=== PATIENT | female | born 1990 ===

== ENCOUNTER 2017-08-31 11:40 | Inpatient (IN) | payer MEDICAID ==
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
[2017-08-31 12:41] LABS: ALCOHOL SERUM < 10 mg/dl (0-10)
[2017-08-31 12:45] LABS: RBC URINE 1 /hpf (0-3); URINE BACTERIA RARE (<OCC); URINE BILIRUBIN NEGATIVE (NEGATIVE); URINE BLOOD MODERATE (NEGATIVE); URINE COLOR YELLOW (YELLOW); URINE GLUCOSE (UA) NEG (Normal); URINE KETONE NEGATIVE (NEGATIVE); URINE LEUKOCYTE ESTERASE TRACE Leu/uL (Negative); URINE PROTEIN NEGATIVE (NEGATIVE); URINE UROBILINOGEN 0.2-1.0 mg/dL (0.2-1.0); WBC URINE 1 /hpf (0-5)
[2017-08-31 12:46] LABS: ALKALINE PHOSPHATASE 70 U/L (38-126); ALT/SGPT 34 U/L (9-52); AST/SGOT 28 U/L (14-36); BILIRUBIN,TOTAL 0.4 mg/dl (0.2-1.3); BLOOD UREA NITROGEN 10 mg/dl (7-17); CALCIUM 9.5 mg/dL (8.4-10.2); CARBON DIOXIDE 24 mmol/L (22-30); CHLORIDE 107 mmol/L (98-107); GFR AFRICAN-AMERICAN > 60; GLUCOSE,RANDOM 93 mg/dL (65-105); POTASSIUM 4.7 MMOL/L (3.6-5.0); SODIUM 136 mmol/l (132-148); TOTAL PROTEIN 8.7 G/DL (6.3-8.2)
[2017-08-31 12:47] LABS: BASO % 0.8 % (0.0-2.0); EOS # 0.1 K/uL (0.0-0.7); EOS % 1.3 % (0.0-4.0); HEMATOCRIT 35.1 % (34.0-47.0); LYMPH # 2.3 K/uL (1.0-4.3); LYMPH % 43.3 % (20.0-40.0); MEAN CELL VOLUME 91.7 fl (81.0-99.0); MEAN CORPUSCULAR HEMOGLOBIN 30.5 pg (27.0-31.0); MEAN CORPUSCULAR HGB CONC 33.3 g/dL (33.0-37.0); MEAN PLATELET VOLUME 7.7 fl (7.2-11.7); MONO # 0.6 K/uL (0.0-0.8); MONO % 10.6 % (0.0-10.0); NEUT # 2.3 K/uL (1.8-7.0); NRBC % 1.3 % (0.0-0.0); RED CELL DISTRIBUTION WIDTH 12.9 % (11.5-14.5); WHITE BLOOD COUNT 5.2 K/uL (4.8-10.8)
[2017-08-31 16:51] VITALS: O2SAT 98
[2017-08-31] MEDS ORDERED: DiphenhydrAMINE 50 mg/ml Inj IM PRN (19:24)
[2017-08-31] MEDS ORDERED: Alum-Mag Hydrox-Simethicone Susp (30 mL) PO PRN (19:30)
[2017-08-31] MEDS ORDERED: Magnesium Hydroxide Susp 30 ml UD PO PRN (19:31)
--- NOTE | 2017-08-31 20:19 | PCM.BM ---
<Deana Montano - Last Filed: 08/31/17 20:17> Treatment Plan Problems - Problems identified on initial assessmt Problem 1 Date Initiated: 08/31/17 Time Initiated: 20:17 Assessment reference: NA Status: Active FEELINS WORTHLESSNESS Date Initiated: 08/31/17 Time Initiated: 20:18 Assessment reference: NA Status: Active Treatment assets and liabiliti Patient Assests: adapts well, cooperative, resourceful, self-reliant, ADL independent, negotiates basic needs Patient Liabilities: financial problems, poor support system, relationship conflicts, medical problems, legal issue - Milieu Protocol Maintain good personal hygiene: daily Encourage regular showers, daily Remind patient to perform daily oral care, daily Assist patient to perform ADL's Conduct patient checks and document Observation sheet: Q15 minutes Maintain personal safety: every shift Educate patient to report safety concerns to staff, every shift Monitor environment for contraband/sharps Medication safety: Monitor for expected outcome, potential side effects: every shift, Assess barriers to learning: every shift, Assess readiness for medication education: every shift <Meena Villalobos - Last Filed: 09/01/17 10:55> - Diagnosis (1) Major depressive disorder Status: Acute Interventions: Medication management, Individual and group therapy, Psychoeducation 09/01/17 10:54
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
--- NOTE | 2017-09-01 10:48 | PCM.PSYCH ---
Initial Psychiatric Evaluation - Initial Psychiatric Evaluation Type of Admission: Voluntary Legal Status: Capacity Chief Complaint (in patient's own words): "I have been feeling depressed." Patient's Reaction to Hospitalization: HPI: 27 yo female w/ hx of HIV, depression, presents s/p making a vague suicidal statement during a court appearance. Patient denies that she currently feels depressed due to the recent of her mother (3 months ago) but denies current suicidal ideation/plan/intent. She states that she feels stressed due to homelessness. She is goal oriented and would like to be discharged from the hospital because she loves her children and wants to spend xmas with them. NO AH/VH/SI/HI. Patient submitted a 48 hour letter requesting discharge. PPHx: H/o depression and admission to [facility] in December 2016, during which time she was treated w/ Zoloft, but she was not compliant w/ treatment or follow-up. PMH: Depression; HIV+ve dx 2013, mentioned being on treatment but no names ; Asthma; HPV PSH: C Section X2 SH: Former smoker; No illegal drug use; Occasional Alcohol use; Last worked in [email or web address]; Live in a senior care; Has 3 children under the care of her family. Allergies: NKDA Seasonal Allergies Medication: Reviewed Current Medications: Active Medications Generic Name Dose Route Start Last Admin Trade Name Freq PRN Reason Stop Dose Admin Acetaminophen 650 mg 08/31/17 19:33 Tylenol 325mg Tab PO Q6 PRN pain 3 thru 9 Al Hydrox/Mg Hydrox/Simethicone 30 ml 08/31/17 19:30 Maalox Plus 30 Ml PO Q4 PRN Indigestion / Heartburn Diphenhydramine HCl 50 mg 08/31/17 19:24 Benadryl IM Q6 PRN if unable to swallow for EPS Diphenhydramine HCl 50 mg 08/31/17 19:26 Benadryl PO Q6 PRN EPS Diphenhydramine HCl 50 mg 08/31/17 21:03 08/31/17 21:30 Benadryl PO 50 mg HS PRN Administration Sleep Haloperidol 5 mg 08/31/17 19:29 Haldol PO Q4 PRN Agitation Haloperidol Lactate 5 mg 08/31/17 19:27 Haldol IM Q4 PRN severe agitation Lorazepam 2 mg 08/31/17 19:22 Ativan IM Q4 PRN severe agitation Lorazepam 2 mg 08/31/17 19:23 Ativan PO Q4 PRN Agitation Magnesium Hydroxide 30 ml 08/31/17 19:31 Milk Of Magnesia PO HS PRN Constipation Sertraline HCl 50 mg 09/01/17 10:45 Zoloft PO DAILY LISA Past Psychiatric History - Past Psychiatric History Previous Treatment History: Inpatient Pertinent Medical Hx (Current Medical&Sleep Prob, Allergies): Allergies Allergy/AdvReac Type Severity Reaction Status Date / Time seafood Allergy ANAPHYLAXIS Uncoded 08/31/17 11:46 Sertraline [Zoloft] 50 mg PO DAILY #30 tab 09/01/17 Review of Systems - Psychiatric Psychiatric: As Per HPI, Anxiety, Depression, Mood Swings, Suicidal Ideation Mental Status Examination - Personal Presentation Personal Presentation: Looks stated age - Affect Affect: Broad - Motor Activity Motor Activity: Calm - Reliability in Providing Information Reliability in Providing Information: Good - Speech Speech: Organized - Mood Mood: Depressed - Formal Thought Process Formal Thought Process: No Impairment - Hallucinations/Delusions Additional comments: NO AH/VH/paranoia/delusions - Obsessions/Compulsions Obsessions: No Compulsions: No - Cognitive Functions Orientation: Person, Place, Situation, Time Sensorium: Alert Attention/Concentration: Attentive Estimate of Intelligence: Average Judgement: Intact, as evidence by: Good judgement Memory: Recent intact, as evidence by: Ability to recall events of the day, Remote intact, as evidenced by: Abilit to recall sig. life events, Remote intact , as evidenced by: Ability to recall historical events - Risk Risk: Suicidal - Strength & Assets Inventory Strength & Assets Inventory: Cooperative - Limitations Limitations: Other (Homeless) DSM 5 DX - DSM 5 DSM 5 Diagnosis: Major Depressive Disorder - Recommended/Plan of Treatment Treatment Recommendations and Plan of Treatment: Major Depressive Disorder; patient submitted a 48 hour letter requesting discharge. Patient denies acute ideation to harm self or others. She will be observed overnight and likely discharged tomorrow as she does not meet criteria for involuntary commitment at this time. -Admit to psychiatry unit -Individual and group therapy -Zoloft 50 mg PO Daily -Disposition planning Projected ELOS: 2 days Discharge Plan and Discharge Criteria: Discharge when the patient is psychiatrically stable - Smoking Cessation Smoking Cessation Initiated: No Reason for not providing: Not indicated
[2017-09-01 10:50] LABS: T4 7.62 ug/dl (5.5-11.0)
[2017-09-01 11:04] LABS: THYROID STIMULATING HORMONE 1.4 mIU/ML (0.46-4.68)
[2017-09-01 19:14] VITALS: BP 114/73; PULSE 78; RESP 18; TEMP 98.2
[2017-09-01 21:23] LABS: RAPID PLASMA REAGIN REACTIVE (NONREACTIVE)
--- NOTE | 2017-09-02 08:51 | PCM.PYCHDC ---
Mental Status Examination - Mental Status Examination Orientation: Person, Place, Situation, Time Memory: Intact Mood: Neutral Affect: Broad Speech: Appropriate Attention: WNL Concentration: WNL Association: WNL Fund of Knowledge: WNL Formal Thought Process: No Impairment Description of patient's judgement and insight: Fair I/J Psychotic Thoughts and Behaviors: NO AH/VH/paranoia/delusions Suicidal Ideation: No Current Homicidal Ideation?: No Discharge Summary - Discharge Note Reason for Hospitalization: HPI: 27 yo female w/ hx of HIV, depression, presents s/p making a vague suicidal statement during a court appearance. Patient denies that she currently feels depressed due to the recent of her mother (3 months ago) but denies current suicidal ideation/plan/intent. She states that she feels stressed due to homelessness. She is goal oriented and would like to be discharged from the hospital because she loves her children and wants to spend xmas with them. NO AH/VH/SI/HI. Patient submitted a 48 hour letter requesting discharge. PPHx: H/o depression and admission to [facility] in December 2016, during which time she was treated w/ Zoloft, but she was not compliant w/ treatment or follow-up. PMH: Depression; HIV+ve dx 2013, mentioned being on treatment but no names ; Asthma; HPV PSH: C Section X2 SH: Former smoker; No illegal drug use; Occasional Alcohol use; Last worked in [employer]; Live in a fci; Has 3 children under the care of her family. 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 Patient is not agreeable to staying to wait for confirmatory tests. Patient will be discharged AMA. She states that she will follow-up with her primary care doctor on Sunday about the +RPR. Patient has capacity to make medical decisions. Consultations:: List each consultation separately and include: 1. Reason for request. 2. Findings. 3. Follow-up Consultations: Medicine consult appreciated Summary of Hospital Course include:: 1. Description of specific treatment plan utilized for patients during their course of treatmen. 2. Summarize the time- course for resolution of acute symptoms and/or regressed behaviors. 3. Describe issues identified and worked on during hospitalization. 4. Describe medication utilized. 5. Describe medical problems identified and treated. 6. Reassessment of suicide risk Summary of Hospital Course: Patient was admitted to the hospital and started on Zoloft 50 mg PO Daily. Individual and group therapy were provided. Patient submitted a 48 hour letter requesting discharge and will be discharged today as she is not an acute danger to self or others. - Diagnosis (1) Major depressive disorder Current Visit: Yes Status: Acute - Final Diagnosis (DSM 5) Condition upon Discharge: STABLE DSM 5: Major Depressive Disorder Disposition: AGAINST MEDICAL ADVICE Follow-up Treatment Plan: Major Depressive Disorder; patient submitted a 48 hour letter requesting discharge, she will be discharged as she is not an acute danger to self and does not meet criteria for involuntary commitment. -Patient to follow-up w/ PMD about +RPR -Continue Zoloft 50 mg PO Daily -Discharge AMA Prescriptions/Medication Reconciliation: Sertraline [Zoloft] 50 mg PO DAILY #30 tab - Smoking Cessation Smoking Cessation Medication prescribed: No Reason for not providing: Not indicated - Antipsychotic Medications Pt discharged on 2 or more routine antipsychotic medications: No
== END 2017-09-02 09:45 | disposition left against medical advice (07) | DRG 426 ==
LOC: H.ER 11:40 → H.ERHOLD 14:27 → H.PSYCH 18:31
PROVIDERS: ADMIT Psychiatry & Neurology Psychiatry; ATTEND Psychiatry & Neurology Psychiatry
PROC: GZ3ZZZZ Medication Management (ICD-10-PCS; principal; 2017-08-31)
PROC: GZHZZZZ Group Psychotherapy (ICD-10-PCS; 2017-08-31)
PROC: GZ56ZZZ Individual Psychotherapy, Supportive (ICD-10-PCS; 2017-08-31)
DX: F32.9 Major depressive disorder, single episode, unspecified (principal); B20 Human immunodeficiency virus [HIV] disease; R45.851 Suicidal ideations; Z59.0 Homelessness; Z87.891 Personal history of nicotine dependence; Z79.899 Other long term (current) drug therapy; J45.909 Unspecified asthma, uncomplicated; F41.0 Panic disorder [episodic paroxysmal anxiety]

== ENCOUNTER 2017-09-29 14:43 | Emergency (ER) | payer MEDICAID ==
[2017-09-29 14:56] VITALS: BP 120/68; PULSE 109; RESP 18; TEMP 98.7; O2SAT 98
[2017-09-29 16:03] LABS: HEMOGLOBIN 12.1 g/dL (12.0-16.0); MEAN CELL VOLUME 90.8 fl (81.0-99.0); MEAN CORPUSCULAR HEMOGLOBIN 29.5 pg (27.0-31.0); MEAN CORPUSCULAR HGB CONC 32.4 g/dL (33.0-37.0); RBC 4.11 Mil/uL (3.80-5.20); RED CELL DISTRIBUTION WIDTH 13.1 % (11.5-14.5); WHITE BLOOD COUNT 5.4 K/uL (4.8-10.8)
[2017-09-29 16:17] LABS: ALB/GLOB RATIO 0.9 (1.0-2.1); ALBUMIN 4.8 g/dL (3.5-5.0); ALT/SGPT 41 U/L (9-52); AST/SGOT 46 U/L (14-36); BLOOD UREA NITROGEN 6 mg/dl (7-17); CALCIUM 9.4 mg/dL (8.4-10.2); GFR AFRICAN-AMERICAN > 60; GFR NON-AFRICAN AMERICAN > 60
--- NOTE | 2017-09-29 19:39 | ED PDOC ---
HPI: Abdomen Time Seen by Provider: 09/29/17 15:06 Chief Complaint (Nursing): Female Genitourinary Chief Complaint (Provider): Abdominal pain, , no menses History Per: Patient History/Exam Limitations: no limitations Onset/Duration Of Symptoms: Days Outside of [place] travel?: No Additional Complaint(s): 27 yo patient with no medical problems presents with abdominal pressure, abdomen getting larger, and (+) test at home. Pt denies vaginal discharge but reports some spotting a few weeks ago. LMP in june, patient states she was on depo but stopped. Past Medical History Reviewed: Historical Data, Nursing Documentation, Vital Signs Vital Signs: Last Vital Signs Temp 98.7 F 09/29/17 14:53 Pulse 109 H 09/29/17 14:53 Resp 18 09/29/17 14:53 BP 120/68 09/29/17 14:53 Pulse Ox 98 09/29/17 19:39 - Medical History PMH: Depression, HIV Denies: Diabetes, Hepatitis, HTN, Chronic Kidney Disease, Seizures, Sexually Transmitted Disease - Surgical History Surgical History: No Surg Hx - Family History Family History: States: No Known Family Hx - Living Arrangements Living Arrangements: With Family - Social History Current smoker - smoking cessation education provided: No - Home Medications Home Medications: Ambulatory Orders Medication Instructions Recorded Sertraline [Zoloft] 50 mg PO DAILY #30 tab 09/01/17 - Allergies Allergies/Adverse Reactions: Allergies Allergy/AdvReac Type Severity Reaction Status Date / Time seafood Allergy ANAPHYLAXIS Uncoded 08/31/17 11:46 Review of Systems ROS Statement: Except As Marked, All Systems Reviewed And Found Negative Constitutional: Negative for: Fever, Chills Gastrointestinal: Positive for: Abdominal Pain. Negative for: Nausea, Vomiting Physical Exam - Reviewed Nursing Documentation Reviewed: Yes Vital Signs Reviewed: Yes - Physical Exam Appears: Positive for: Well, Non-toxic, No Acute Distress Head Exam: Positive for: ATRAUMATIC, NORMAL INSPECTION, NORMOCEPHALIC Skin: Positive for: Normal Color, Warm, DRY Eye Exam: Positive for: Normal appearance ENT: Positive for: Normal ENT Inspection Neck: Positive for: Normal, Painless ROM Cardiovascular/Chest: Positive for: Regular Rate, Rhythm Respiratory: Positive for: CNT, Normal Breath Sounds Gastrointestinal/Abdominal: Positive for: Normal Exam, Bowel Sounds, Soft. Negative for: Tenderness Back: Positive for: Normal Inspection Extremity: Positive for: Normal ROM Neurologic/Psych: Positive for: Alert, Oriented - Laboratory Results Result Diagrams: 09/29/17 15:50 09/29/17 15:50 - ECG O2 Sat by Pulse Oximetry: 98 Medical Decision Making Medical Decision Making: Urine (-) Beta (-) Labs normal. Prolactin ordered. Discussed with Dr. Washington. Disposition - Clinical Impression Clinical Impression: disorder - Patient ED Disposition Is Patient to be Admitted: No Counseled Patient/Family Regarding: Diagnosis, Need For Followup - Disposition Disposition: Routine/Home Disposition Time: 19:52 Condition: GOOD Additional Instructions: Prolactin level pending. Please follow-up with PMD or EGG SMELLER. Instructions: Breast Care for the Non-breast Feeding Woman (ED) Forms: [employer] [facility] Connect (Croatian)
== END 2017-09-29 20:19 | disposition home or self-care (01) ==
LOC: H.ER 14:43
DX: Z39.1 Encounter for care and examination of lactating mother (principal); R10.9 Unspecified abdominal pain; Z33.1 Pregnant state, incidental

== ENCOUNTER 2017-12-14 11:28 | Emergency (ER) | payer SELFPAY ==
[2017-12-14 11:42] VITALS: BP 124/75; PULSE 92; RESP 16; TEMP 98.1; O2SAT 100
--- NOTE | 2017-12-14 13:57 | ED PDOC ---
HPI: Abdomen Time Seen by Provider: 12/14/17 11:55 Chief Complaint (Nursing): Abdominal Pain History Per: Patient (27 yo female presenting to the ER because she has not had a period for 4 months. She does not have any pain or bleeding. She is has 3 children, 10, 4, 3.) Past Medical History Reviewed: Historical Data, Nursing Documentation, Vital Signs Vital Signs: Last Vital Signs Temp 98.1 F 12/14/17 11:39 Pulse 92 H 12/14/17 11:39 Resp 16 12/14/17 11:39 BP 124/75 12/14/17 11:39 Pulse Ox 100 12/14/17 11:39 - Medical History PMH: Depression, HIV Denies: Diabetes, Hepatitis, HTN, Chronic Kidney Disease, Seizures, Sexually Transmitted Disease - Family History Family History: States: No Known Family Hx - Home Medications Home Medications: Ambulatory Orders Medication Instructions Recorded Sertraline [Zoloft] 50 mg PO DAILY #30 tab 09/01/17 - Allergies Allergies/Adverse Reactions: Allergies Allergy/AdvReac Type Severity Reaction Status Date / Time seafood Allergy ANAPHYLAXIS Uncoded 08/31/17 11:46 Review of Systems ROS Statement: Except As Marked, All Systems Reviewed And Found Negative Physical Exam - Reviewed Nursing Documentation Reviewed: Yes Vital Signs Reviewed: Yes - Physical Exam Appears: Positive for: Well, Non-toxic, No Acute Distress Skin: Positive for: Normal Color, Warm, DRY Eye Exam: Positive for: Normal appearance Neck: Positive for: Normal, Painless ROM - Laboratory Results Urine POC: Negative - ECG O2 Sat by Pulse Oximetry: 100 Disposition - Clinical Impression Clinical Impression: Amenorrhea - Patient ED Disposition Is Patient to be Admitted: No Doctor Will See Patient In The: Office Counseled Patient/Family Regarding: Diagnosis, Need For Followup - Disposition Disposition: Routine/Home Disposition Time: 13:57 Condition: STABLE Instructions: Absent or Irregular Periods
== END 2017-12-14 14:06 | disposition home or self-care (01) ==
LOC: H.ER 11:28
DX: N91.2 Amenorrhea, unspecified (principal); F32.9 Major depressive disorder, single episode, unspecified

== ENCOUNTER 2018-02-13 13:54 | Emergency (ER) | payer SELFPAY ==
[2018-02-13] MEDS ORDERED: Fluconazole 150 MG TAB PO STA (14:44)
--- NOTE | 2018-02-13 14:49 | ED PDOC ---
HPI: Female Pain Time Seen by Provider: 02/13/18 14:08 Chief Complaint (Nursing): Female Genitourinary Chief Complaint (Provider): Genital irritation, itchiness History Per: Patient History/Exam Limitations: no limitations Onset/Duration Of Symptoms: Days (2 weeks ) Current Symptoms Are (Timing): Still Present Associated Symptoms: denies: Fever, Chills, Nausea, Vomiting, Loss Of Appetite, Back Pain, Chest Pain, Constipation, Urinary Symptoms Alleviating Factors: None Additional Complaint(s): 27 yo female with no medical problems presents with irritation of the external genitals with white discharge for 2 weeks. PT denies pain during sex but reports itchiness which is worse after intercourse. 1 partners, no protection. Past Medical History Reviewed: Historical Data, Nursing Documentation, Vital Signs Vital Signs: Last Vital Signs Temp 98.3 F 02/13/18 14:02 Pulse 93 H 02/13/18 14:02 Resp 16 02/13/18 14:02 BP 113/65 02/13/18 14:02 Pulse Ox 100 02/13/18 14:02 - Medical History PMH: Depression, HIV Denies: Diabetes, Hepatitis, HTN, Chronic Kidney Disease, Seizures, Sexually Transmitted Disease - Surgical History Surgical History: No Surg Hx - Family History Family History: States: No Known Family Hx - Living Arrangements Living Arrangements: With Family - Social History Current smoker - smoking cessation education provided: No - Home Medications Home Medications: Ambulatory Orders Medication Instructions Recorded Sertraline [Zoloft] 50 mg PO DAILY #30 tab 09/01/17 Fluconazole [Diflucan] 150 mg PO ONCE #1 tab 02/13/18 - Allergies Allergies/Adverse Reactions: Allergies Allergy/AdvReac Type Severity Reaction Status Date / Time seafood Allergy ANAPHYLAXIS Uncoded 02/13/18 14:02 Review of Systems ROS Statement: Except As Marked, All Systems Reviewed And Found Negative Constitutional: Negative for: Chills Neurological: Negative for: Weakness Physical Exam - Reviewed Nursing Documentation Reviewed: Yes Vital Signs Reviewed: Yes - Physical Exam Appears: Positive for: Well, Non-toxic, No Acute Distress Head Exam: Positive for: ATRAUMATIC, NORMAL INSPECTION, NORMOCEPHALIC Skin: Positive for: Normal Color, Warm, DRY Eye Exam: Positive for: Normal appearance ENT: Positive for: Normal ENT Inspection Neck: Positive for: Normal, Painless ROM Cardiovascular/Chest: Positive for: Regular Rate, Rhythm Respiratory: Positive for: Normal Breath Sounds. Negative for: Accessory Muscle Use, Respiratory Distress Gastrointestinal/Abdominal: Positive for: Normal Exam, Soft. Negative for: Tenderness Pelvic Exam: Positive for: External Exam Normal, Bimanual Exam Normal, Discharge (White, on the wall of vaginal rehan). Negative for: Speculum Exam Normal Back: Positive for: Normal Inspection Extremity: Positive for: Normal ROM Neurologic/Psych: Positive for: Alert, Oriented - ECG O2 Sat by Pulse Oximetry: 100 Disposition - Clinical Impression Clinical Impression: Vulvovaginal candidiasis - Patient ED Disposition Is Patient to be Admitted: No Counseled Patient/Family Regarding: Diagnosis, Need For Followup - Disposition Disposition: Routine/Home Disposition Time: 14:51 Condition: STABLE Prescriptions: Fluconazole [Diflucan] 150 mg PO ONCE #1 tab Instructions: Vulvovaginal Yeast Infection
[2018-02-13 15:24] VITALS: BP 122/67; PULSE 78; RESP 17; TEMP 97.8; O2SAT 99
== END 2018-02-13 15:22 | disposition home or self-care (01) ==
LOC: H.ER 13:54
DX: B37.3 Candidiasis of vulva and vagina (principal); F32.9 Major depressive disorder, single episode, unspecified

== ENCOUNTER 2018-05-13 13:17 | Emergency (ER) | payer MEDICAID ==
--- NOTE | 2018-05-13 14:14 | ED PDOC ---
HPI: Psych/Substance Abuse Time Seen by Provider: 05/13/18 13:24 Chief Complaint (Nursing): Psychiatric Evaluation Chief Complaint (Provider): Psychiatric Evaluation History Per: Patient, Other (friend Irma) History/Exam Limitations: no limitations Onset/Duration Of Symptoms: Hrs (this morning) Current Symptoms Are (Timing): Still Present Additional Complaint(s): 27 year old female presents to the ED with her friend Irma for a psychiatric evaluation. As per patient, she is unsure as to why she is here, but does note she witnessed her boyfriend Brad this morning around 0100 from an overdose. As per patient's friend, patient drank three shots of alcohol spread out, and around approx noon today, started calling out for Brad, and acting bizarrely, saying everyone who passed down the street was Brad. Irma reports patient was crying hysterically during her episode, but denies her falling or injuring herself. At this time, patient states she does not remember anything, but does feel sad secondary to her boyfriend's . Otherwise denies suicidal ideation, homicidal ideation, hallucinations, injury, and pain. PMD: none provided Past Medical History Reviewed: Historical Data, Nursing Documentation, Vital Signs Vital Signs: Last Vital Signs Temp 98.1 F 05/13/18 13:21 Pulse 101 H 05/13/18 13:21 Resp 16 05/13/18 13:21 BP 105/69 05/13/18 13:21 Pulse Ox 97 05/13/18 13:21 - Medical History PMH: Depression, HIV Denies: Diabetes, Hepatitis, HTN, Chronic Kidney Disease, Seizures, Sexually Transmitted Disease - Surgical History Surgical History: (x2) - Family History Family History: States: Unknown Family Hx - Social History Current smoker - smoking cessation education provided: No Alcohol: Occasional Drugs: Cannabis, Cocaine - Home Medications Home Medications: Ambulatory Orders Medication Instructions Recorded Acetaminophen/Codeine 1 tab PO Q8 PRN #15 tab 03/11/18 [Tylenol/Codeine 300 MG/30 MG] Amoxicillin [Amoxil 500 mg Cap] 500 mg PO TID #29 cap 03/11/18 Darunavir Ethanolate [Prezista] 300 mg PO DAILY 03/11/18 Emtricitabine/Tenofovir Diso 1 tab PO DAILY 03/11/18 [Truvada 200 MG-300 MG] Ritonavir [Norvir] 100 mg PO DAILY 03/11/18 Sulfamethoxazole/Trimethoprim 1 tab PO BID #14 tab 05/13/18 [Bactrim DS 800 mg-160 mg] - Allergies Allergies/Adverse Reactions: Allergies Allergy/AdvReac Type Severity Reaction Status Date / Time seafood Allergy ANAPHYLAXIS Uncoded 03/11/18 08:42 Review of Systems ROS Statement: Except As Marked, All Systems Reviewed And Found Negative Psych: Negative for: Suicidal ideation (or homicidal), Other (hallucinations) Physical Exam - Reviewed Nursing Documentation Reviewed: Yes Vital Signs Reviewed: Yes - Physical Exam Appears: Positive for: No Acute Distress Head Exam: Positive for: ATRAUMATIC, NORMAL INSPECTION, NORMOCEPHALIC Skin: Positive for: Normal Color, Warm, Dry. Negative for: Rash Eye Exam: Positive for: Normal appearance ENT: Positive for: Normal ENT Inspection Neck: Positive for: Normal, Painless ROM, Supple Cardiovascular/Chest: Positive for: Regular Rate, Rhythm Respiratory: Positive for: Normal Breath Sounds. Negative for: Accessory Muscle Use, Respiratory Distress Gastrointestinal/Abdominal: Positive for: Normal Exam, Soft. Negative for: Tenderness Back: Positive for: Normal Inspection Extremity: Positive for: Normal ROM Neurologic/Psych: Positive for: Alert (and awake), Mood/Affect (crying, cooperative and consolable) - Laboratory Results Result Diagrams: 05/13/18 14:42 05/13/18 14:42 - ECG O2 Sat by Pulse Oximetry: 97 (RA) Pulse Ox Interpretation: Normal Medical Decision Making Medical Decision Making: Time: 1353 Initial Impression: psychiatric evaluation Initial Plan: --CT Head w/o contrast --Alcohol serum --CMP --Drug screen --CBC with differential --Urinalysis --Urine C&S Kdur 40 mEq, bactrim DS ordered. Pt. evaluated by Sintia, edge worker, who spoke with Dr. Adams and cleared pt. for discharge. Scribe Attestation: Documented by Laura Coto, acting as a scribe for Wenceslao Olmedo PA-C. Provider Scribe Attestation: All medical record entries made by the Scribe were at my direction and personally dictated by me. I have reviewed the chart and agree that the record accurately reflects my personal performance of the history, physical exam, medical decision making, and the department course for this patient. I have also personally directed, reviewed, and agree with the discharge instructions and disposition. Disposition - Clinical Impression Clinical Impression: Adjustment disorder with depressed mood, UTI (urinary tract infection), Hypokalemia, Polysubstance abuse - Patient ED Disposition Is Patient to be Admitted: No - Disposition Referrals: FAMILY PROVIDER,NO [Primary Care Provider] - [facility] [Outside] [facility] [Outside] Disposition: Routine/Home Disposition Time: 18:29 Condition: STABLE Additional Instructions: JAQUELIN LOBATO, thank you for letting us take care of you today. Your provider was Eric Lewis MD and you were treated for PSYCH EVAL. The emergency medical care you received today was directed at your acute symptoms. If you were prescribed any medication, please fill it and take as directed. It may take several days for your symptoms to resolve. Return to the Emergency Department if your symptoms worsen, do not improve, or if you have any other problems. Please contact your doctor or call one of the physicians/clinics you have been referred to that are listed on the Patient Visit Information form that is included in your discharge packet. Bring any paperwork you were given at discharge with you along with any medications you are taking to your follow up visit. Our treatment cannot replace ongoing medical care by a primary care provider outside of the emergency department. Thank you for allowing the [facility] [employer] team to be part of your care today. If you had an X-Ray or CT scan: A Radiologist will review the ED reading if any change in treatment is needed we will contact you. If you had a blood, urine, or wound culture: It will take several days for the results, if any change in treatment is needed we will contact you. If you had an STI test: It will take 48 hours for the results. Please call after 1 week if you have not heard back. Prescriptions: Sulfamethoxazole/Trimethoprim [Bactrim DS 800 mg-160 mg] 1 tab PO BID #14 tab Instructions: Adjustment Disorder, Urinary Tract Infection, Adult (DC), Drug Abuse Treatment, Polysubstance Abuse (DC) Forms: [email or web address] Connect (Yoruba)
--- NOTE | 2018-05-13 14:20 | CT ---
Date of service: 05/13/2018 PROCEDURE: CT HEAD WITHOUT CONTRAST. HISTORY: AMS COMPARISON: None available. TECHNIQUE: Axial computed tomography images were obtained through the head/brain without intravenous contrast. Radiation dose: Total exam DLP = nine hundred forty mGy-cm. This CT exam was performed using one or more of the following dose reduction techniques: Automated exposure control, adjustment of the mA and/or kV according to patient size, and/or use of iterative reconstruction technique. FINDINGS: HEMORRHAGE: No intracranial hemorrhage. BRAIN: No mass effect or edema. No atrophy or chronic microvascular ischemic changes. VENTRICLES: Unremarkable. No hydrocephalus. CALVARIUM: Unremarkable. PARANASAL SINUSES: Unremarkable as visualized. No significant inflammatory changes. MASTOID AIR CELLS: Unremarkable as visualized. No inflammatory changes. OTHER FINDINGS: None. IMPRESSION: Normal CT of the Head.
[2018-05-13 14:51] LABS: BASO % 0.4 % (0.0-2.0); EOS % 0.3 % (0.0-4.0); HEMOGLOBIN 11.8 g/dL (12.0-16.0); LYMPH # 2.2 K/uL (1.0-4.3); LYMPH % 48.4 % (20.0-40.0); MEAN CELL VOLUME 91.4 fl (81.0-99.0); MEAN CORPUSCULAR HEMOGLOBIN 30.7 pg (27.0-31.0); MEAN CORPUSCULAR HGB CONC 33.6 g/dL (33.0-37.0); MEAN PLATELET VOLUME 7.6 fl (7.2-11.7); MONO # 0.6 K/uL (0.0-0.8); MONO % 13.4 % (0.0-10.0); NEUT # 1.7 K/uL (1.8-7.0); NEUT % 37.5 % (50.0-75.0); NRBC % 0.2 % (0.0-0.0); RBC 3.85 Mil/uL (3.80-5.20); RED CELL DISTRIBUTION WIDTH 14.5 % (11.5-14.5); WHITE BLOOD COUNT 4.5 K/uL (4.8-10.8)
[2018-05-13 15:00] LABS: SQUAMOUS EPITHIAL 6 /hpf (0-5); URINE BACTERIA RARE (<OCC); URINE BILIRUBIN NEGATIVE (NEGATIVE); URINE BLOOD SMALL (NEGATIVE); URINE CLARITY CLOUDY (Clear); URINE COLOR YELLOW (YELLOW); URINE GLUCOSE (UA) NEG (Normal); URINE LEUKOCYTE ESTERASE MOD Leu/uL (Negative); URINE PROTEIN NEGATIVE (NEGATIVE); URINE UROBILINOGEN 0.2-1.0 mg/dL (0.2-1.0)
[2018-05-13 15:15] LABS: BARBITURATES, UR NEGATIVE (NEGATIVE); BENZODIAZEPINES, UR NEGATIVE (NEGATIVE); OPIATES, UR POSITIVE (NEGATIVE); PHENCYCLIDINE, UR NEGATIVE (NEGATIVE)
[2018-05-13 15:20] LABS: ALBUMIN 4.4 g/dL (3.5-5.0); ALT/SGPT 20 U/L (9-52); AST/SGOT 36 U/L (14-36); BLOOD UREA NITROGEN 4 mg/dl (7-17); CALCIUM 9.4 mg/dL (8.4-10.2); GFR NON-AFRICAN AMERICAN > 60
[2018-05-13] MEDS ORDERED: Potassium Chloride 20 mEq ER Tab PO STA (15:33)
[2018-05-13] MEDS ORDERED: Tmp-Smz 800 mg-160 mg DS Tab PO STA (17:03)
[2018-05-13] MEDS ORDERED: Tmp-Smz 800 mg-160 mg DS Tab ONE (17:05)
[2018-05-13] MEDS ORDERED: Potassium Chloride 20 mEq ER Tab PO ONE ×2 (17:10→17:11)
[2018-05-13 18:20] VITALS: BP 106/78; PULSE 72; RESP 18; TEMP 98.4
[2018-05-13 18:30] VITALS: O2SAT 97
== END 2018-05-13 21:21 | disposition home or self-care (01) ==
LOC: H.ER 13:17
DX: F43.21 Adjustment disorder with depressed mood (principal); N39.0 Urinary tract infection, site not specified; E87.6 Hypokalemia; F19.10 Other psychoactive substance abuse, uncomplicated
CPT/HCPCS: 70450; 80053; 81003; 85025; 87086; 99282; G0480